=== PATIENT | female | born 1970 | race American Indian/Alaskan Native ===

== ENCOUNTER 2018-08-11 06:07 | Day surgery (SDC) | payer BC ==
[2018-08-07 13:59] VITALS: BMI 38.7
[2018-08-11] MEDS ORDERED: Propofol 10 mg/ml Inj (20 ML) ONE ×4 (07:45→08:27)
[2018-08-11] MEDS ORDERED: Phenylephrine 10 mg/ml Inj ONE (08:23)
[2018-08-11] MEDS ORDERED: Sodium Chloride 0.9% 1,000 ML IV SCH (08:45)
[2018-08-11 09:12] VITALS: PULSE 63; O2SAT 100
[2018-08-11 10:28] VITALS: RESP 16; TEMP 98.6
[2018-08-11 10:29] VITALS: BP 145/87
== END 2018-08-11 10:11 | disposition home or self-care (01) ==
LOC: ENDO 06:07
PROVIDERS: ATTEND Internal Medicine Gastroenterology
DX: Z12.11 Encounter for screening for malignant neoplasm of colon (principal); Z80.0 Family history of malignant neoplasm of digestive organs; K63.5 Polyp of colon; K64.0 First degree hemorrhoids
CPT/HCPCS: 45380; 84703; 88305; J2001; J2370; J2704; J7030